=== PATIENT | female | born 1960 | race Caucasian/White ===

== ENCOUNTER 2016-10-27 07:25 | Day surgery (SDC) | payer OTHER ==
[~2016-10-27] VITALS: Ht 160 cm; Wt 118.4 kg
[2016-10-27 08:04] VITALS: BP 127/72
[2016-10-27 13:02] VITALS: BP 126/66
== END 2016-10-27 12:15 | disposition home or self-care (01) ==
LOC: DS 07:25 → OR 09:30 → DS 09:30 → GI 09:30 → DS 12:15
PROVIDERS: Internal Medicine Gastroenterology
PROC: 0DJD8ZZ Inspection of Lower Intestinal Tract, Via Natural or Artificial Opening Endoscopic (ICD-10-PCS; principal; 2016-10-27 09:30)
DX: Z12.11 Encounter for screening for malignant neoplasm of colon (principal); K57.30 Diverticulosis of large intestine without perforation or abscess without bleeding; K64.8 Other hemorrhoids; M25.569 Pain in unspecified knee; R32 Unspecified urinary incontinence; E66.01 Morbid (severe) obesity due to excess calories; Z68.42 Body mass index [BMI] 45.0-49.9, adult; Z98.84 Bariatric surgery status; Z85.43 Personal history of malignant neoplasm of ovary; Z90.710 Acquired absence of both cervix and uterus
CPT/HCPCS: 45378; J1200; J1610; J2250; J2310; J3010; J3490